=== PATIENT | female | born 1950 | race Caucasian/White ===

== ENCOUNTER 2016-08-08 06:40 | Inpatient (IN) ==
--- NOTE | 2016-08-07 21:29 | Discharge Summary ---
<Courtney Myers - Last Filed: 08/07/16 21:27> Date of Encounter: 08/11/16 - Discharge Diagnosis (1) Arthritis of knee, left Priority: Primary Status: Acute (2) Tobacco use Priority: Primary Status: Chronic (3) Hypertension Priority: Primary Status: Chronic Qualifiers: Hypertension type: essential hypertension Qualified Code(s): I10 - Essential (primary) hypertension - Discharge Medications Home Medications: Citalopram [CeleXA] 20 mg PO DAILY 03/03/15 [History] CloNIDine HCl 0.1 mg PO DAILY PRN 03/03/15 [History] Gabapentin [Neurontin] 600 mg PO TID 03/03/15 [History] Hydroxychloroquine Sulfate [Plaquenil] 200 mg PO BID 03/03/15 [History] Losartan Potassium [Cozaar] 50 mg PO DAILY 03/03/15 [History] Aspirin Enteric Coated [Aspirin EC] 325 mg PO DAILY #21 tablet. 08/07/16 [Rx] OxyCODONE Immed Rel [Roxicodone 5 MG] 5 - 10 mg PO Q6HR PRN #40 tablet 08/07/16 [Rx] Cyanocobalamin (Vitamin B-12) [Vitamin B12] 100 mcg PO DAILY 08/08/16 [History] Etodolac 200 mg PO Q8H PRN 08/08/16 [History] Allergies/Adverse Reactions: Allergies morphine Adverse Reaction (Verified 06/10/15 07:10) Confusion nitrofurantoin [From Macrodantin] Adverse Reaction (Verified 03/03/15 09:08) Vomiting Primary care physician: Erin Andre, - Patient Status Disposition: Home, Self-Care Condition: Good - Discharge Instructions Follow Up With: José March MD [Partnered Physician] - 09/06/16 9:40 am Courtney Myers PAC [Physician Amusement Ride Inspector] - 08/18/16 9:45 am Erin Andre CNP [Primary Care Provider] - - Hospital Course Hospital course: Ms. Lemus is a 66 year old female - Time Spent with Patient Total time spent providing and/or coordinating discharge services: <José March - Last Filed: 08/10/16 07:58> Date of Encounter: 08/10/16 Time of Encounter: 07:57 - Discharge Diagnosis (1) Osteoarthritis Priority: Primary Status: Acute Qualifiers: Osteoarthritis location: knee Osteoarthritis type: primary Laterality: left Qualified Code(s): M17.12 - Unilateral primary osteoarthritis, left knee (2) Obesity (BMI 35.0-39.9 without comorbidity) Priority: Secondary Status: Chronic (3) Arthritis of knee, left Priority: Primary Status: Acute (4) Tobacco use Priority: Primary Status: Chronic (5) Hypertension Priority: Primary Status: Chronic Qualifiers: Hypertension type: essential hypertension Qualified Code(s): I10 - Essential (primary) hypertension (6) Acute blood loss anemia Priority: Primary Status: Acute Primary care physician: Erin Andre, - Patient Status Functional capacity at discharge: uses cane/walker Overall status at discharge: patient is progressing back to baseline - Hospital Course Hospital course: Ms. Lemus is a 66 year old female The patient had an uneventful postoperative course. They received antibiotics and physical therapy and were discharged in stable condition. There will follow -up in the office in 2 weeks. Aspirin DVT prophylaxis - Time Spent with Patient Total time spent providing and/or coordinating discharge services:
--- NOTE | 2016-08-08 06:42 | History & Physical Report ---
Date of Encounter: 08/08/16 Time of Encounter: 06:42 24 Hour HP Update - Instructions Instructions: If the History and Physical is less than 30 days old and was completed prior to A.M. admission and or procedure and has NOT been updated on calendar day of procedure please complete this update prior to performing procedure. - Update Patient reports changes in Medical Condition: No Changes in assessment/condition: No Changes in Medication: No Preop tests/diagnostics Reviewed: Yes Surgery Remains Indicated: Yes Consent for Planned Operative Procedure(s) Verified: Yes - Pre-Operative Checklist Preoperative Checklist Indicated: No Prophylactic Antibiotic Ordered: Yes Is VTE Prophylaxis Indicated?: Yes
[2016-08-08] MEDS ORDERED: Albuterol 2.5 MG/3 ML NEBULIZER IH ONE (06:58)
[2016-08-08] MEDS ORDERED: CeFAZolin Pre 2,000 MG/100 ML 2,000 MG/100 ML BAG IVPB ONE (06:58)
[2016-08-08] MEDS ORDERED: Ringers Solution, Lactated 1,000 ML IVC SCH ×2 (07:00→11:07)
--- NOTE | 2016-08-08 07:21 | Anesthesia Evaluation PreOp ---
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: Other (Leroy palsy) Other Medical History: Denies Any Significant HX Anesthesia History: No Prior Anesthetic Complications (except bad reaction to morphine (thinks it's unrelated to the anesthesia)), Past Anesthesia Alcohol Use: none Drug use: none Medications and Allergies Alprazolam [Xanax] 1 mg PO BID 03/03/15 [History] Citalopram [CeleXA] 20 mg PO DAILY 03/03/15 [History] CloNIDine HCl 0.1 mg PO DAILY PRN 03/03/15 [History] Folic Acid/Vitamin B Comp W-C 1 tab PO DAILY 03/03/15 [History] Furosemide [Lasix] 20 mg PO BID 03/03/15 [History] Gabapentin [Neurontin] 600 mg PO TID 03/03/15 [History] Hydroxychloroquine Sulfate [Plaquenil] 200 mg PO DAILY 03/03/15 [History] Losartan Potassium [Cozaar] 50 mg PO DAILY 03/03/15 [History] Rivaroxaban [Xarelto] 10 mg PO 0600 #20 tablet 03/05/15 [Rx] Aspirin Enteric Coated [Aspirin EC] 325 mg PO DAILY #21 tablet. 08/07/16 [Rx] OxyCODONE Immed Rel [Roxicodone 5 MG] 5 - 10 mg PO Q6HR PRN #40 tablet 08/07/16 [Rx] Allergies morphine Adverse Reaction (Verified 06/10/15 07:10) Confusion nitrofurantoin [From Macrodantin] Adverse Reaction (Verified 03/03/15 09:08) Vomiting - Meds/Allergy Pre-op Review Medications Reviewed: Yes Allergies Reviewed: Yes Beta Blockers on Current Med List: No Anesthesia Results - Labs Laboratory Tests 08/02/16 08/02/16 08/02/16 11:27 11:27 11:27 WBC 6.3 Hgb 13.0 Hct 39.2 Plt Count 206 PT 10.6 INR 1.0 APTT 33.3 Sodium 140 Potassium 4.6 H Chloride 108 Carbon Dioxide 27 BUN 20 Creatinine 1.25 H Est GFR ( Amer) 52 L Est GFR (Non-Af Amer) 43 L BUN/Creatinine Ratio 16 - Imaging EKG: report reviewed, image reviewed (SR; low QRS voltage in precordial leads; possible anterior UT (probably old)) Anesthesia Exam Last Vital Signs Temp 99.1 F 08/08/16 07:11 Pulse 94 08/08/16 07:11 Resp 18 08/08/16 07:11 BP 162/74 08/08/16 07:11 Pulse Ox 97 08/08/16 07:11 Weight: 85 kg NPO (# of Hours): >> 8 hrs - HEENT Pupil (Motor): Pupils equal, EOMI Mallampati: III Teeth: Missing, Poor dentition Oral Opening: Greater than 3 - PAPER WRAPPING MACHINE OPERATOR LOC: Oriented - Cardiac Rhythm: Regular Murmur: None - Pulmonary Breath Sounds: bilateral Clear Respiratory Effort: Symmetrical Anesthesia Assess/Plan ASA Score: 2 Modified [place] Scale for Level of Consciousness: Cooperative, oriented, and tranquil Anesthetic Plan: General (refusing regional at this time) Monitoring Plan: Standard Monitors Recovery Plan: PACU
[2016-08-08] MEDS ORDERED: Ondansetron 4 MG/2 ML VIAL ONE (07:25)
[2016-08-08] MEDS ORDERED: Dexamethasone 4 MG/ML VIAL ONE (07:25)
[2016-08-08] MEDS ORDERED: Lidocaine -MPF 4% 5 ML AMPUL ONE (07:25)
[2016-08-08] MEDS ORDERED: *HR* Phenylephrine 10 MG/ML VIAL ONE (07:25)
[2016-08-08] MEDS ORDERED: Lidocaine -MPF 2% 2 ML VIAL ONE (07:25)
[2016-08-08] MEDS ORDERED: *HR* Propofol 200 MG/20 ML VIAL IVP ONE (07:25)
[2016-08-08] MEDS ORDERED: *HR* FentaNYL (PF) 100 MCG/2 ML VIAL ONE (07:25)
[2016-08-08] MEDS ORDERED: *HR* Midazolam HCl 2 MG/2 ML VIAL ONE (07:25)
[2016-08-08] MEDS ORDERED: *HR* Succinylcholine 200 MG/10 ML VIAL IVP ONE (07:25)
[2016-08-08] MEDS ORDERED: *HR* HYDROmorphone 2 MG/ML SYRINGE ONE (09:11)
[2016-08-08] MEDS ORDERED: *HR* Promethazine 25 MG/ML VIAL IVP PRN ×3 (09:34→19:56)
[2016-08-08] MEDS ORDERED: *HR* HYDROmorphone (PF) 1 MG/ML SYRINGE IVP PRN ×2 (09:34→11:07)
--- NOTE | 2016-08-08 09:43 | Orthopedic Operative Note ---
Date of procedure: 08/08/16 Pre-op diagnosis: Left knee arthritis Post-op diagnosis: same Procedure: Procedure: Left total knee replacement Estimated blood loss: 200 cc Hardware: Arthrex Femur: 4 Tibia: 3 PS insert: 8 Patella: 37 Exam Under anesthesia: Loss full extension 10 degrees flexion 90 degrees Procedural Notes: Grade 4 arthritic changes medial compartment grade 3 arthritic changes patellofemoral joint lateral compartment Operative procedure: The patient was brought to the operating room and placed on the operating room table. After general anesthesia was administered the operative knee was examined. Findings were noted in the exam under anesthesia. The operative extremity was prepped and draped in sterile surgical fashion. The patient received IV antibiotics prior to skin incision. A standard midline incision was made centered over the patella. The incision was made through the skin and subcutaneous tissue. A medial parapatellar tendon approach was performed. Care was taken to preserve tissue along the medial aspect of the patella. And to protect the patella tendon. The deep MCL was released off the medial tibia. The infra patella fat pad was excised. Knee was brought into flexion. Patient noted to have Grade 4 arthritic changes medial compartment grade 3 arthritic changes patellofemoral joint lateral compartment. The entry hole was made for the intramedullary femoral guide. The guide was seated in 6 degrees of valgus. Anterior cut was made followed by the distal cut. The ACL the PCL the medial and the lateral menisci were excised. The tibia was subluxed forward. The entry hole was made for the intramedullary tibial guide. Guide was seated to resect 2 mm off the more abnormal side. The knee was brought into flexion the distal femur was sized to a 4. The femoral guide was seated, the anterior cut was made followed by the posterior condylar cut, followed by the chamfer cuts. The finishing guide was seated the box cut was made and the lug holes were drilled. The tibia was sized to a 3, the tibial tray was seated and prepared with the large drill followed by the fin cutter. Trial reduction revealed full extension no varus valgus instability with the appropriate 8 PS Alondra. The patella was everted and cut was made at the level of the insertion of the quadriceps and patella tendon. The patella was sized to a 37 the guide was seated and the lug holes are drilled. Trial reduction revealed excellent patella tracking. All trial components were removed all bony surfaces were irrigated. The tibia was cemented first followed by the femur. The 8 PS Alondra was seated and the knee was brought into full extension. The patella was cemented and held in place with the patellar holding clamp. After the cement had hardened, the knee sat for 2 minutes with a Betadine saline solution. The knee was then irrigated out with 2 L of pulse irrigation. The extensor mechanism was closed with #2 FiberWire suture and #2 PDS suture. The subcutaneous tissue was then irrigated and closed deep with #1 PDS suture superficially with 0 PDS suture and skin was closed with skin tomasa and Dermabond. The patient was then placed in a sterile dressing and a postoperative brace extubated and transferred to recovery room in stable condition. Anesthesia: GABI Surgeon: José March Director Of Contracts: Courtney Myers Condition: stable Disposition: PACU
[2016-08-08] MEDS: *HR* Labetalol 20 MG/4 ML SYRINGE IVP PRN ×2 (10:38→10:48)
--- NOTE | 2016-08-08 11:01 | Anesthesia Evaluation Post Op ---
Date of Encounter: 08/08/16 Time of Encounter: 11:01 - Vital Signs Vital Signs: Last Vital Signs Temp 99.1 F 08/08/16 10:45 Pulse 87 08/08/16 10:55 Resp 12 08/08/16 10:55 BP 151/92 08/08/16 10:55 Pulse Ox 97 08/08/16 10:55 - Lungs Lungs: Clear Ascult./Percussion - Airway Airway: Non-obstructed - Cardiovascular Regular Rate - Mental Status Mental Status: Alert & Oriented, Answers Appropriately - Pain Pain Scale: 2 - Nausea Vomiting Nausea Vomiting: Not Present - Hydration Hydration: Ice chips - Discharge PostOp Status: Transfer Patient to floor
[2016-08-08 11:03] LABS: Hematocrit 36.2 % (35.3-44.9); Hemoglobin 11.9 g/dL (11.5-15.4)
[2016-08-08] MEDS ORDERED: MOM Conc 10 ML UD.LIQ PO PRN (11:07)
[2016-08-08] MEDS ORDERED: Ondansetron 4 MG/2 ML VIAL IVP PRN (11:07)
[2016-08-08] MEDS ORDERED: Naloxone 0.4 MG/ML INJ IVP PRN (11:07)
[2016-08-08] MEDS ORDERED: Sennosides 8.6 MG TABLET PO PRN (11:07)
[2016-08-08] MEDS ORDERED: Albuterol Neb 1.25 MG/3 ML VIAL IH ONE (11:07)
[2016-08-08] MEDS ORDERED: Temazepam 15 MG CAPSULE PO PRN (11:07)
[2016-08-08] MEDS: Gabapentin 300 MG CAPSULE PO SCH ×3 (11:28→21:15)
[2016-08-08] MEDS: Cyanocobalamin (B-12) 1,000 MCG TABLET PO SCH (11:28)
[2016-08-08] MEDS: *HR* OxyCODONE Immed Rel 5 MG TABLET PO PRN ×2 (13:53→18:40)
[2016-08-08] MEDS: ceFAZolin 2,000 MG in D5% in Water 100 ML IVPB SCH ×2 (16:31→23:35)
[2016-08-08] MEDS: *HR* Enoxaparin 30 MG/0.3 ML SYRINGE SQ SCH (16:34)
[2016-08-08] MEDS ORDERED: *HR* Enoxaparin 30 MG/0.3 ML SYRINGE SQ SCH (18:00)
[2016-08-08] MEDS ORDERED: *HR* Promethazine 25 MG/ML VIAL ONE (18:38)
[2016-08-08 20:39] LABS: Calcium 9.2 mg/dL (8.6-10.8); Potassium 4.5 mEq/L (3.5-4.5)
[2016-08-08] MEDS: cloNIDine HCl 0.1 MG TABLET PO PRN (21:14)
[2016-08-08] MEDS ORDERED: *HR* Metoprolol 5 MG/5 ML VIAL IVP ONE (23:47)
[2016-08-09 00:54] LABS: Bilirubin,Urine Negative (Negative); Blood,Urine Negative (Negative); Clarity,Urine Cloudy (Clear); Color,Urine Yellow (Yellow); Glucose,Urine (UA) Normal (Normal); Ketones,Urine Negative (Negative); Leukocyte Esterase,Urine Negative (Negative); Nitrite,Urine Negative (Negative); Protein,Urine 30 mg/dL (Neg-Trace); Urobilinogen,Urine Normal (Normal)
[2016-08-09 00:57] LABS: Bacteria,Urine Many per hpf (None-Few); Hyaline Casts,Urine None Seen per lpf (None-Few); Squamous Epithelial Cell,Urine Many per lpf (None-Few)
[2016-08-09] MEDS: *HR* OxyCODONE Immed Rel 5 MG TABLET PO PRN ×4 (03:27→17:57)
[2016-08-09] MEDS: *HR* Enoxaparin 30 MG/0.3 ML SYRINGE SQ SCH ×2 (05:35→17:57)
[2016-08-09] MEDS: Acetaminophen 325 MG TABLET PO PRN ×2 (05:54→15:58)
[2016-08-09] MEDS ORDERED: *HR* Metoprolol 5 MG/5 ML VIAL IVP PRN (06:15)
--- NOTE | 2016-08-09 06:18 | Orthopedics Progress Note ---
Date of Encounter: 08/09/16 Time of Encounter: 06:18 - Assessment and Plan (1) Osteoarthritis Current Visit: No Status: Acute Qualifiers: Osteoarthritis location: knee Osteoarthritis type: primary Laterality: left Qualified Code(s): M17.12 - Unilateral primary osteoarthritis, left knee (2) Obesity (BMI 35.0-39.9 without comorbidity) Current Visit: Yes Status: Chronic (3) Arthritis of knee, left Current Visit: Yes Status: Acute (4) Tobacco use Current Visit: Yes Status: Chronic (5) Hypertension Current Visit: No Status: Chronic Qualifiers: Hypertension type: essential hypertension Qualified Code(s): I10 - Essential (primary) hypertension Subjective Interval history: Patient was seen this morning doing well without complaints. Afebrile vital signs stable. Operative extremity: Neurovascularly intact Dressing clean dry and intact Calves nontender Assessment and plan: Continue with postoperative care Hematocrit 36 Objective Vital signs: Vital Signs Temp Pulse Resp BP Pulse Ox 08/09/16 04:25 100.7 F H 90 18 170/92 93 L 08/09/16 01:34 172/96 08/08/16 23:38 97.6 F 107 19 175/123 95 08/08/16 21:17 98.4 F 98 15 191/95 94 L 08/08/16 20:08 101 F H 92 14 188/84 99 08/08/16 19:38 98.8 F 93 16 110/74 94 L 08/08/16 14:59 159/85 08/08/16 13:56 97.7 F 83 15 185/99 93 L 08/08/16 12:56 98.5 F 83 15 183/75 95 08/08/16 12:10 98.7 F 82 16 172/84 94 L 08/08/16 11:51 16 90 L 08/08/16 11:41 99.0 F 83 16 168/90 95 08/08/16 11:11 98.7 F 87 16 170/100 97 08/08/16 10:55 99.1 F 87 12 151/92 97 08/08/16 10:45 99.1 F 89 12 151/104 96 08/08/16 10:35 111 11 138/103 97 08/08/16 10:25 109 7 134/108 99 08/08/16 10:15 98.3 F 101 10 114/93 100 08/08/16 07:11 99.1 F 94 18 162/74 97 08/08/16 07:06 99.1 F 94 18 162/74 97 Intake and Output 08/08/16 08/08/16 08/09/16 15:59 23:59 07:59 Intake Total 100 / 100 Output Total 200 / 200 100 / 100 400 / 400 Balance -190 / -190 0 / 0 -400 / -400 Intake: IV Fluids 100 / 100 Ancef 2,000 MG In 100 / 100 Dextrose 5% 100 ML @ 200 mls/hr IVPB Q8HR ROMAN Rx#: [id number] Oral Output: Urine 100 / 100 400 / 400 Estimated Blood Loss 200 / 200 Other: # Voids 1 - Labs CBC & BMP: 08/08/16 10:26 08/08/16 20:18 Labs: Abnormal lab results Creatinine 1.25 mg/dL (0.57-1.11) H 08/08/16 20:18 Est GFR ( Amer) 52 (> 60) L 08/08/16 20:18 Est GFR (Non-Af Amer) 43 (> 60) L 08/08/16 20:18 Glucose 121 mg/dL (70-99) H 08/08/16 20:18 Urine Clarity Cloudy (Clear) A 08/08/16 23:45 Urine Protein 30 mg/dL (Neg-Trace) H 08/08/16 23:45 Urine Microscopic RBC 5-15 per hpf (0-3) H 08/08/16 23:45 Urine Microscopic WBC 5-15 per hpf (0-3) H 08/08/16 23:45 Ur Squamous Epith Cells Many per lpf (None-Few) H 08/08/16 23:45 Urine Bacteria Many per hpf (None-Few) H 08/08/16 23:45 Ur Culture Indicated? YES (NO) A 08/08/16 23:45 - VTE Documentation of Mechanical Device: Venous foot pump, device Consult Discharge Plan - Plan Referrals: Erin Andre, LOLLYPOP MACHINE OPERATOR [Primary Care Provider] -
[2016-08-09 07:13] LABS: Hematocrit 29.2 % (35.3-44.9); Hemoglobin 9.8 g/dL (11.5-15.4)
[2016-08-09 07:30] LABS: Calcium 9.3 mg/dL (8.6-10.8)
[2016-08-09] MEDS: Gabapentin 300 MG CAPSULE PO SCH ×4 (07:49→21:30)
[2016-08-09] MEDS: Cyanocobalamin (B-12) 1,000 MCG TABLET PO SCH (07:49)
[2016-08-09] MEDS: cloNIDine HCl 0.1 MG TABLET PO PRN (11:37)
[2016-08-09] MEDS: Sulfamethoxazole/Trimeth DS 1 EACH TABLET PO SCH (21:30)
[2016-08-10] MEDS: *HR* Enoxaparin 30 MG/0.3 ML SYRINGE SQ SCH ×2 (06:09→17:13)
[2016-08-10] MEDS: *HR* OxyCODONE Immed Rel 5 MG TABLET PO PRN (06:09)
[2016-08-10 07:01] LABS: Hemoglobin 8.9 g/dL (11.5-15.4)
[2016-08-10 07:19] LABS: Calcium 9.2 mg/dL (8.6-10.8); Potassium 4.1 mEq/L (3.5-4.5)
--- NOTE | 2016-08-10 07:59 | Orthopedics Progress Note ---
Date of Encounter: 08/10/16 Time of Encounter: 07:58 - Assessment and Plan (1) Osteoarthritis Current Visit: No Status: Acute Qualifiers: Osteoarthritis location: knee Osteoarthritis type: primary Laterality: left Qualified Code(s): M17.12 - Unilateral primary osteoarthritis, left knee (2) Obesity (BMI 35.0-39.9 without comorbidity) Current Visit: Yes Status: Chronic (3) Arthritis of knee, left Current Visit: Yes Status: Acute (4) Tobacco use Current Visit: Yes Status: Chronic (5) Hypertension Current Visit: No Status: Chronic Qualifiers: Hypertension type: essential hypertension Qualified Code(s): I10 - Essential (primary) hypertension (6) Acute blood loss anemia Current Visit: Yes Status: Acute Subjective Interval history: Patient was seen this morning doing well without complaints. Afebrile vital signs stable. Operative extremity: Neurovascularly intact Dressing clean dry and intact Calves nontender Assessment and plan: Continue with postoperative care Hemoglobin 8.9 asymptomatic discharged today Objective Vital signs: Vital Signs Temp Pulse Resp BP Pulse Ox 08/10/16 06:38 98.5 F 92 16 147/86 98 08/10/16 05:18 98.9 F 95 16 144/83 98 08/10/16 01:07 99.8 F H 95 17 138/77 93 L 08/09/16 21:29 98.9 F 89 16 113/66 96 08/09/16 15:00 99.8 F H 82 17 130/73 94 L 08/09/16 11:35 99.3 F 83 17 170/73 95 Intake and Output 08/09/16 08/09/16 08/10/16 15:59 23:59 07:59 Output Total 1300 / 1300 Balance -1300 / -1300 Output: Urine 1300 / 1300 - Labs CBC & BMP: 08/10/16 06:13 08/10/16 06:13 Labs: Abnormal lab results Hgb 8.9 g/dL (11.5-15.4) L 08/10/16 06:13 Hct 27.0 % (35.3-44.9) L 08/10/16 06:13 Creatinine 1.12 mg/dL (0.57-1.11) H 08/10/16 06:13 Est GFR ( Amer) 59 (> 60) L 08/10/16 06:13 Est GFR (Non-Af Amer) 49 (> 60) L 08/10/16 06:13 Urine Clarity Cloudy (Clear) A 08/08/16 23:45 Urine Protein 30 mg/dL (Neg-Trace) H 08/08/16 23:45 Urine Microscopic RBC 5-15 per hpf (0-3) H 08/08/16 23:45 Urine Microscopic WBC 5-15 per hpf (0-3) H 08/08/16 23:45 Ur Squamous Epith Cells Many per lpf (None-Few) H 08/08/16 23:45 Urine Bacteria Many per hpf (None-Few) H 08/08/16 23:45 Ur Culture Indicated? YES (NO) A 08/08/16 23:45 - VTE Documentation of Mechanical Device: Venous foot pump, device Consult Discharge Plan - Plan Referrals: José March MD [Partnered Physician] - 09/06/16 9:40 am Courtney Myers PAC [Physician Cotton Puller] - 08/18/16 9:45 am Erin Andre CNP [Primary Care Provider] -
[2016-08-10] MEDS: Sulfamethoxazole/Trimeth DS 1 EACH TABLET PO SCH ×2 (08:07→22:55)
[2016-08-10] MEDS: Gabapentin 300 MG CAPSULE PO SCH ×3 (08:07→22:55)
[2016-08-10] MEDS: Cyanocobalamin (B-12) 1,000 MCG TABLET PO SCH (08:07)
[2016-08-11] MEDS: *HR* Enoxaparin 30 MG/0.3 ML SYRINGE SQ SCH (05:20)
--- NOTE | 2016-08-11 06:21 | Orthopedics Progress Note ---
Date of Encounter: 08/11/16 Time of Encounter: 06:21 - Assessment and Plan (1) Osteoarthritis Current Visit: No Status: Acute Qualifiers: Osteoarthritis location: knee Osteoarthritis type: primary Laterality: left Qualified Code(s): M17.12 - Unilateral primary osteoarthritis, left knee (2) Obesity (BMI 35.0-39.9 without comorbidity) Current Visit: Yes Status: Chronic (3) Arthritis of knee, left Current Visit: Yes Status: Acute (4) Tobacco use Current Visit: Yes Status: Chronic (5) Hypertension Current Visit: No Status: Chronic Qualifiers: Hypertension type: essential hypertension Qualified Code(s): I10 - Essential (primary) hypertension (6) Acute blood loss anemia Current Visit: Yes Status: Acute Subjective Interval history: Patient was seen this morning doing well without complaints. Afebrile vital signs stable. Operative extremity: Neurovascularly intact Dressing clean dry and intact Calves nontender Assessment and plan: Continue with postoperative care discharged today Objective Vital signs: Vital Signs Temp Pulse Resp BP Pulse Ox 08/11/16 00:40 99.5 F 95 16 147/75 92 L 08/10/16 23:29 100.0 F H 91 16 138/76 92 L 08/10/16 18:36 95 08/10/16 15:30 98.8 F 87 16 134/73 95 08/10/16 11:51 99.3 F 96 16 138/63 94 L 08/10/16 06:38 98.5 F 92 16 147/86 98 Intake and Output 08/10/16 08/10/16 08/11/16 15:59 23:59 07:59 Other: # Voids 1 1 - Labs CBC & BMP: 08/10/16 06:13 08/10/16 06:13 Labs: Abnormal lab results Hgb 8.9 g/dL (11.5-15.4) L 08/10/16 06:13 Hct 27.0 % (35.3-44.9) L 08/10/16 06:13 Creatinine 1.12 mg/dL (0.57-1.11) H 08/10/16 06:13 Est GFR ( Amer) 59 (> 60) L 08/10/16 06:13 Est GFR (Non-Af Amer) 49 (> 60) L 08/10/16 06:13 Urine Clarity Cloudy (Clear) A 08/08/16 23:45 Urine Protein 30 mg/dL (Neg-Trace) H 08/08/16 23:45 Urine Microscopic RBC 5-15 per hpf (0-3) H 08/08/16 23:45 Urine Microscopic WBC 5-15 per hpf (0-3) H 08/08/16 23:45 Ur Squamous Epith Cells Many per lpf (None-Few) H 08/08/16 23:45 Urine Bacteria Many per hpf (None-Few) H 08/08/16 23:45 Ur Culture Indicated? YES (NO) A 08/08/16 23:45 - VTE Documentation of Mechanical Device: Venous foot pump, device Consult Discharge Plan - Plan Referrals: José March MD [Partnered Physician] - 09/06/16 9:40 am Courtney Myers PAC [Physician Creative Art Therapist] - 08/18/16 9:45 am Erin Andre MATERIAL CONTROL MANAGER [Primary Care Provider] -
[2016-08-11 07:12] VITALS: BP 141/78
[2016-08-11] MEDS: Cyanocobalamin (B-12) 1,000 MCG TABLET PO SCH (09:30)
[2016-08-11] MEDS: *HR* OxyCODONE Immed Rel 5 MG TABLET PO PRN (09:31)
[2016-08-11] MEDS: Sulfamethoxazole/Trimeth DS 1 EACH TABLET PO SCH (09:31)
[2016-08-11] MEDS: Gabapentin 300 MG CAPSULE PO SCH (09:31)
== END 2016-08-11 11:40 | disposition home or self-care (01) | DRG 470 ==
LOC: SAMDAY 06:40 → 3NENU 11:05
PROVIDERS: ADMIT Orthopaedic Surgery; ATTEND Orthopaedic Surgery

== ENCOUNTER 2022-04-28 05:51 | Inpatient (IN) ==
[2022-04-28] MEDS ORDERED: CeFAZolin Syr 2,000MG/20 ML 2,000 MG/20 ML SYRINGE IVPB ONE (06:15)
[2022-04-28] MEDS ORDERED: Ringers Solution, Lactated 1,000 ML IVC SCH ×2 (06:15→13:04)
[2022-04-28] MEDS ORDERED: *HR* FentaNYL (PF) 100 MCG/2 ML VIAL IVP PRN (06:31)
[2022-04-28] MEDS ORDERED: Acetaminophen IV 1,000 MG/100 ML BAG IVPB ONE (06:31)
[2022-04-28] MEDS ORDERED: Ondansetron 4 MG/2 ML VIAL IVP PRN (06:31)
[2022-04-28] MEDS ORDERED: *HR* OxyCODONE Immed Rel 5 MG TABLET PO PRN ×2 (06:31→13:04)
[2022-04-28] MEDS ORDERED: Famotidine 20 MG/2 ML VIAL IVP ONE (06:31)
[2022-04-28] MEDS ORDERED: Ropivacaine/PF 0.5% 30 ML VIAL ONE (06:40)
[2022-04-28] MEDS ORDERED: ROPIVACAINE/PF/NS 0.25% 1 EACH SYRINGE INTRAART ONE (06:40)
[2022-04-28] MEDS ORDERED: *HR* Midazolam HCl 2 MG/2 ML VIAL ONE (06:55)
[2022-04-28] MEDS ORDERED: *HR* FentaNYL (PF) 100 MCG/2 ML VIAL ONE ×2 (06:56→09:09)
[2022-04-28] MEDS ORDERED: Lidocaine -MPF 4% 5 ML AMPUL ONE (07:01)
[2022-04-28] MEDS ORDERED: Lidocaine HCL 4 ML Topical Solution (Laryng-O-Jet Kit Sterile Pak) TP ONE (07:01)
[2022-04-28] MEDS ORDERED: Ondansetron 4 MG/2 ML VIAL ONE (07:01)
[2022-04-28] MEDS ORDERED: *HR* Succinylcholine 200 MG/10 ML VIAL IVP ONE (07:01)
[2022-04-28] MEDS ORDERED: *HR* Propofol 200 MG/20 ML VIAL IVP ONE (07:02)
[2022-04-28] MEDS ORDERED: Lidocaine -MPF 2% 2 ML VIAL ONE (07:02)
[2022-04-28] MEDS ORDERED: Povidone-Iodine 45 ML, Sodium Chloride IRRigation 1,000 ML IR ONE (07:30)
[2022-04-28] MEDS ORDERED: TOTAL JOINT MIXTURE (100ML) INTRAART ONE (07:30)
[2022-04-28] MEDS ORDERED: Tranexamic Acid 1,000 MG/10 ML VIAL ONE (08:20)
[2022-04-28] MEDS ORDERED: EPHEDrine sulfate 50 MG/10 ML VIAL IVP ONE (08:27)
[2022-04-28] MEDS ORDERED: Ketamine HCL *QUVA* 50mg (1mL) SYRINGE ONE (09:36)
[2022-04-28] MEDS: *HR* HYDROmorphone PF 0.5 MG/0.5 ML SYRINGE IVP PRN ×2 (12:13→12:27)
[2022-04-28] MEDS ORDERED: Sennosides 8.6 MG TABLET PO PRN (13:04)
[2022-04-28] MEDS ORDERED: MOM Conc 10 ML UD.LIQ PO PRN (13:04)
[2022-04-28] MEDS ORDERED: *HR* HYDROmorphone (PF) 1 MG/ML SYRINGE IVP PRN (13:04)
[2022-04-28] MEDS ORDERED: Naloxone 0.4 MG/ML INJ IVP PRN (13:04)
[2022-04-28] MEDS: Ondansetron 4 MG/2 ML VIAL IVP PRN (16:06)
[2022-04-28] MEDS: CeFAZolin 2 GM/120 ML BAG IVPB SCH ×2 (16:11→23:32)
[2022-04-28] MEDS: carvediloL 25 MG TABLET PO SCH (17:17)
[2022-04-28] MEDS: Ascorbic Acid 500 MG TABLET PO SCH (17:17)
[2022-04-28] MEDS: *HR* Promethazine 25 MG/ML VIAL IM PRN (20:40)
[2022-04-28] MEDS: Melatonin 3 MG TABLET PO SCH ×2 (20:43→23:32)
[2022-04-28] MEDS: *HR* OxyCODONE Immed Rel 5 MG TABLET PO PRN (23:32)
[2022-04-29 05:04] LABS: Basophils % 0.1 %; Hematocrit 31.8 % (35.3-44.9); Hemoglobin 10.5 g/dL (11.5-15.4); Immature Granulocytes % 0.3 % (0-4); Lymphocytes # 0.9 K/mcL (0.6-4.6); Lymphocytes % 10.4 %; Mean Corpuscular Hemoglobin 29.8 pg (28.0-33.3); Mean Corpuscular Volume 90.3 fL (83.0-100.0); Mean Platelet Volume 10.8 fL (9.4-12.4); Monocytes # 0.7 K/mcL (0.0-1.3); Monocytes % 7.3 %; Neutrophils # 7.3 K/mcL (1.6-8.9); Platelet Count 217 K/mcL (140-400); Red Blood Count 3.52 M/mcL (3.82-4.97); Red Cell Distribution Width 13.2 % (11.5-14.5); Segmented Neutrophils % 81.9 %
[2022-04-29 05:37] LABS: Calcium 9.4 mg/dL (8.6-10.3); Potassium 4.2 mEq/L (3.5-5.1)
[2022-04-29] MEDS: Multivit/Ca/Min/Fe/FA 1 TAB TABLET PO SCH (08:19)
[2022-04-29] MEDS: Ascorbic Acid 500 MG TABLET PO SCH ×2 (08:19→17:56)
[2022-04-29] MEDS: carvediloL 25 MG TABLET PO SCH ×2 (08:20→17:57)
[2022-04-29] MEDS: amLODIPine 5 MG TABLET PO SCH (08:21)
[2022-04-29] MEDS: ARIPiprazole 10 MG TABLET PO SCH (08:21)
[2022-04-29] MEDS: Aspirin Enteric Coated 325 MG Tablet PO SCH ×2 (11:43→20:17)
[2022-04-29] MEDS: *HR* OxyCODONE Immed Rel 5 MG TABLET PO PRN ×2 (15:49→20:40)
[2022-04-29] MEDS: Melatonin 3 MG TABLET PO SCH (20:17)
[2022-04-30] MEDS: *HR* OxyCODONE Immed Rel 5 MG TABLET PO PRN ×2 (05:16→08:59)
[2022-04-30 08:27] LABS: White Blood Count 8.1 K/mcL (4.3-11.1)
[2022-04-30 08:28] LABS: Basophils % 0.4 %; Eosinophils # 0.1 K/mcL (0.0-0.6); Hematocrit 34.6 % (35.3-44.9); Hemoglobin 10.9 g/dL (11.5-15.4); Immature Granulocytes % 0.4 % (0-4); Lymphocytes # 1.7 K/mcL (0.6-4.6); Lymphocytes % 20.7 %; Mean Corpuscular HGB Conc 31.5 g/dL (31.6-35.5); Mean Corpuscular Hemoglobin 29.5 pg (28.0-33.3); Mean Corpuscular Volume 93.5 fL (83.0-100.0); Mean Platelet Volume 10.5 fL (9.4-12.4); Monocytes # 0.8 K/mcL (0.0-1.3); Monocytes % 9.8 %; Neutrophils # 5.5 K/mcL (1.6-8.9); Platelet Count 228 K/mcL (140-400); Red Cell Distribution Width 13.4 % (11.5-14.5); Segmented Neutrophils % 67.7 %
[2022-04-30] MEDS: Aspirin Enteric Coated 325 MG Tablet PO SCH ×2 (08:54→20:34)
[2022-04-30] MEDS: amLODIPine 5 MG TABLET PO SCH (08:54)
[2022-04-30] MEDS: Ascorbic Acid 500 MG TABLET PO SCH ×2 (08:54→17:17)
[2022-04-30] MEDS: carvediloL 25 MG TABLET PO SCH ×2 (08:54→17:17)
[2022-04-30] MEDS: ARIPiprazole 10 MG TABLET PO SCH (08:54)
[2022-04-30] MEDS: Multivit/Ca/Min/Fe/FA 1 TAB TABLET PO SCH (08:54)
[2022-04-30 09:05] LABS: Calcium 9.9 mg/dL (8.6-10.3); Potassium 4.3 mEq/L (3.5-5.1)
[2022-04-30] MEDS: Ondansetron 4 MG/2 ML VIAL IVP PRN (11:25)
[2022-04-30] MEDS: *HR* Promethazine 25 MG/ML VIAL IM PRN (12:57)
[2022-04-30] MEDS: Melatonin 3 MG TABLET PO SCH (20:34)
[2022-05-01 05:15] VITALS: PULSE 73; TEMP 98.7; O2SAT 94
[2022-05-01] MEDS: ARIPiprazole 10 MG TABLET PO SCH (10:15)
[2022-05-01] MEDS: Multivit/Ca/Min/Fe/FA 1 TAB TABLET PO SCH (10:15)
[2022-05-01] MEDS: Aspirin Enteric Coated 325 MG Tablet PO SCH (10:15)
[2022-05-01] MEDS: carvediloL 25 MG TABLET PO SCH (10:15)
[2022-05-01] MEDS: Ascorbic Acid 500 MG TABLET PO SCH (10:16)
[2022-05-01] MEDS: amLODIPine 5 MG TABLET PO SCH (10:16)
[2022-05-01 10:28] VITALS: BP 172/96
== END 2022-05-01 12:41 | disposition home health service (06) | DRG 489 ==
LOC: SDCAOSI 05:51 → 4WAOSI 12:40
PROVIDERS: ADMIT Orthopaedic Surgery; ATTEND Orthopaedic Surgery